=== PATIENT | female | born 1950 | race Caucasian/White ===

== ENCOUNTER 2021-06-25 12:52 | Outpatient (CLI) | payer MEDICARE ==
[~2021-06-25 12:52] MED LIST: ACET325T14 PO; ACYC-40 PO; CALC-151 PO; OMEG1CAP57 PO
== END 2021-06-25 23:59 | disposition home or self-care (01) ==
LOC: CFH 12:52
PROVIDERS: ATTEND Family Medicine
DX: Z12.31 Encounter for screening mammogram for malignant neoplasm of breast (principal)
CPT/HCPCS: 77063; 77067

== ENCOUNTER → 2021-07-01 | Outpatient (CLI) | payer MEDICARE | END | disposition home or self-care (01) | LOC: CFH 11:00 | PROVIDERS: ATTEND Family Medicine | DX: M85.89 Other specified disorders of bone density and structure, multiple sites (principal) | CPT/HCPCS: 77080 ==